=== PATIENT | male | born 1950 | race Caucasian/White ===

== ENCOUNTER 2021-01-24 18:09 | Emergency (ER) | payer MEDICARE ==
[~2021-01-24] VITALS: Ht 172.7 cm; Wt 100.0 kg
[2021-01-24 19:55] VITALS: BP 181/89
== END 2021-01-24 20:07 | disposition home or self-care (01) ==
LOC: EMS 18:09
DX: M54.41 Lumbago with sciatica, right side (principal)
CPT/HCPCS: 99283

== ENCOUNTER 2025-07-30 12:17 | Emergency (ER) | payer MEDICARE, SELFPAY ==
[~2025-07-30] VITALS: Ht 170.2 cm; Wt 95.5 kg
[2025-07-30 12:33] VITALS: BP 161/79; PULSE 83; RESP 18; TEMP 99; O2SAT 96
[2025-07-30] MEDS ORDERED: IBUP-1492 PO (13:23)
[2025-07-30] MEDS ORDERED: DICL100G60 TP (13:23)
[2025-07-30] MEDS: LIDOCAINE 5% TRANSDERMAL PATCH TD ONE (13:50)
[2025-07-30] MEDS: IBUPROFEN 600 MG TABLET PO ONE (13:51)
== END 2025-07-30 14:14 | disposition home or self-care (01) ==
LOC: EMS 12:19
DX: M25.561 Pain in right knee (principal); M54.2 Cervicalgia; G89.29 Other chronic pain; Z90.49 Acquired absence of other specified parts of digestive tract; Z98.890 Other specified postprocedural states; Z79.1 Long term (current) use of non-steroidal anti-inflammatories (NSAID)
CPT/HCPCS: 99283